=== PATIENT | female | born 1980 | race Caucasian/White ===

== ENCOUNTER 2017-09-27 19:42 | Inpatient (IN) | payer MEDICAID, OTHER ==
[~2017-09-27] VITALS: Ht 157.5 cm; Wt 60.9 kg
[~2017-09-27 19:42] MED LIST: DIPH25CA85 PO; DSS100 PO; HYDR-4031 PO; NICO21T TD; PANT40TA25 PO; TRAZ-144 PO
[2017-09-27] MEDS ORDERED: ALPR1TAB7 PO (19:48)
[2017-09-27] MEDS ORDERED: SODIUM CHLORIDE 0.9% 1,000 ML IV ONE (20:15)
[2017-09-27 20:27] LABS: BASOPHILS % (AUTO) 0.8 % (0.0-2.0); EOSINOPHILS % (AUTO) 0.7 % (1.0-6.0); HEMATOCRIT 38.5 % (36-46); HEMOGLOBIN 12.7 g/dL (12.0-16.0); LYMPHOCYTES # (AUTO) 1.7 K/uL (1.0-4.8); LYMPHOCYTES % (AUTO) 27.1 % (22.0-44.0); MEAN CORPUSCULAR HEMOGLOBIN 26.7 pg (26.0-34.0); MEAN CORPUSCULAR VOLUME 81 fL (80-100); MONOCYTES # (AUTO) 0.4 K/uL (0.1-1.0); MONOCYTES % (AUTO) 5.7 % (2.0-9.0); NEUTROPHILS # (AUTO) 4.1 K/uL (1.8-7.7); NEUTROPHILS % (AUTO) 65.7 % (40.0-70.0); PLATELET COUNT (AUTO) 249 K/uL (150-450); RED BLOOD CELL COUNT(AUTO) 4.76 MIL/uL (4.00-5.20); RED CELL DISTRIBUTION WIDTH 14.6 % (11.5-14.5)
[2017-09-27 20:39] LABS: ANION GAP 9 mmol/L (8-16); CALCIUM, TOTAL 8.6 mg/dL (8.8-10.5); CARBON DIOXIDE 28 mmol/L (22-29); CHLORIDE 103 mmol/L (98-107); CREATININE 0.74 mg/dL (0.60-1.30); GLOMERULAR FILTR. RATE CALC > 60 mL/min (>60); GLUCOSE,RANDOM 84 mg/dL (70-110); POTASSIUM 3.3 mmol/L (3.5-5.1); SODIUM SERUM 140 mmol/L (136-145); UREA NITROGEN, BLOOD 10 mg/dL (7-18)
[2017-09-27 20:44] LABS: ALANINE AMINOTRANSFERASE 18 U/L (12-78); ALBUMIN 3.8 g/dL (3.4-5.0); ALKALINE PHOSPHATASE 80 U/L (46-116); ASPARTATE AMINOTRANSFERASE 14 U/L (15-37); BILIRUBIN,TOTAL 0.2 mg/dL (0.1-1.0); TOTAL PROTEIN, SERUM 7.5 g/dL (6.4-8.2)
[2017-09-27 20:59] LABS: SALICYLATE 1.2 mg/dL (2.8-20.0)
[2017-09-27 21:06] LABS: APPEARANCE,URINE CLOUDY (CLEAR); BILIRUBIN,URINE NEGATIVE (NEGATIVE); GLUCOSE, URINE (UA) NEGATIVE (NEGATIVE); KETONES,URINE 40 mg/dL (NEGATIVE); LEUKOCYTE ESTERASE ,URINE NEGATIVE (NEGATIVE); NITRATE,URINE NEGATIVE (NEGATIVE); OCCULT BLOOD,URINE NEGATIVE (NEGATIVE); PROTEIN,URINE NEGATIVE (NEGATIVE); UROBILINOGEN,URINE 0.2 mg/dL (<=1.0)
[2017-09-27 21:11] LABS: HCG,QUAL RESULT NEGATIVE (NEGATIVE)
[2017-09-27 21:14] LABS: AMPHET/METH SCREEN,URINE NEGATIVE (NEGATIVE); BARBITURATE SCREEN, URINE NEGATIVE (NEGATIVE); BENZODIAZEPINES SCREEN,URINE POSITIVE (NEGATIVE); CANNABINOID SCREEN,URINE NEGATIVE (NEGATIVE); COCAINE SCREEN,URINE NEGATIVE (NEGATIVE); METHADONE SCREEN, URINE NEGATIVE (NEGATIVE); OPIATE SCREEN,URINE NEGATIVE (NEGATIVE); PHENCYCLIDINE SCREEN,URINE NEGATIVE (NEGATIVE)
[2017-09-27] MEDS ORDERED: DONNATAL/LIDOCAINE/MAALOX 55 ML BOTTLE PO ONE (21:15)
[2017-09-27] MEDS ORDERED: POTASSIUM CHLORIDE 20 MEQ ER TABLET PO ONE (21:15)
[2017-09-27 21:32] LABS: ACETAMINOPHEN < 10 mcg/mL (10-30)
[2017-09-27] MEDS ORDERED: LORazepam 2 MG TABLET PO PRN (22:00)
[2017-09-27] MEDS ORDERED: ZOLPIDEM TARTRATE 10 MG TABLET PO PRN (22:00)
[2017-09-27] MEDS ORDERED: HALOPERIDOL 5 MG TABLET PO PRN (22:00)
[2017-09-28] VITALS (13 sets, daily range): BP systolic 105–130; BP diastolic 64–95
[2017-09-28] MEDS ORDERED: INFLUENZA VIRUS VACCINE QVS 2017-18 (3YR+)/PF 60 MCG/0.5 ML SYRINGE IM ONE (04:15)
[2017-09-28] MEDS ORDERED: BACITRACIN 28.4 GM OINTMENT TP PRN (08:15)
[2017-09-28] MEDS ORDERED: BENZOCAINE/MENTHOL LOZENGE MM PRN (08:15)
[2017-09-28] MEDS ORDERED: MAGNESIUM HYDROXIDE SUSPENSION 30 ML UDCUP PO PRN (08:15)
[2017-09-28] MEDS ORDERED: CloNIDine HCL 0.1 MG TABLET PO PRN (08:15)
[2017-09-28] MEDS ORDERED: MAG HYDROX/AL HYDROX/SIMETH ES 30 ML SUSPENSION UDCUP PO PRN (08:15)
[2017-09-28] MEDS ORDERED: LOPERAMIDE HCL 2 MG CAPSULE PO PRN (08:15)
[2017-09-28] MEDS ORDERED: ALBUTEROL SULFATE HFA 90 MCG/PUFF 8 GM INHALER IH PRN (08:15)
[2017-09-28] MEDS ORDERED: ONDANSETRON HCL 4 MG TABLET PO PRN (08:15)
[2017-09-28] MEDS ORDERED: PETROLATUM,WHITE 71 GM JELLY TP PRN (08:15)
[2017-09-28] MEDS ORDERED: ACETAMINOPHEN 325 MG TABLET PO PRN (08:15)
[2017-09-28 08:30] LABS: HEMOGLOBIN A1C 5.5 % (4.5-6.2)
[2017-09-28 09:10] LABS: FREE T4 (FREE THYROXINE) 0.93 ng/dL (0.76-1.46); THYROID STIMULATING HORMONE 2.22 uIU/mL (0.36-3.74)
[2017-09-28] MEDS: OMEPRAZOLE 20 MG CAPSULE PO SCH ×2 (09:43→16:11)
[2017-09-28] MEDS: NICOTINE 14 MG/24 HOUR PATCH TD SCH (09:43)
[2017-09-28] MEDS: IBUPROFEN 600 MG TABLET PO PRN (13:01)
[2017-09-28] MEDS ORDERED: HydrOXYzine PAMOATE 25 MG CAPSULE PO PRN (14:15)
[2017-09-28] MEDS: ALPRAZolam 1 MG TABLET PO SCH (16:12)
[2017-09-28] MEDS ORDERED: TraZODone HCL 50 MG TABLET PO SCH (21:00)
[2017-09-29 03:00] VITALS: BP 100/61
[2017-09-29] MEDS: NICOTINE 14 MG/24 HOUR PATCH TD SCH (08:34)
[2017-09-29] MEDS: ALPRAZolam 1 MG TABLET PO SCH (08:34)
[2017-09-29] MEDS: OMEPRAZOLE 20 MG CAPSULE PO SCH (08:34)
[2017-09-29 08:37] VITALS: BP 116/68
[2017-09-29 08:38] VITALS: BP 116/69
[2017-09-29] MEDS: IBUPROFEN 600 MG TABLET PO PRN (08:38)
[2017-09-29] MEDS ORDERED: OMEP10SU2 PO (13:28)
[2017-09-29] MEDS ORDERED: OMEP20 PO (13:28)
[2017-09-29] MEDS ORDERED: TRAZ-144 PO (13:28)
== END 2017-09-29 15:48 | disposition home or self-care (01) | DRG 754 ==
LOC: EMS 19:43 → EEVIPCON 19:43 → B2S 22:05
PROVIDERS: ADMIT Psychiatry & Neurology Psychiatry
PROC: 3E0234Z Introduction of Serum, Toxoid and Vaccine into Muscle, Percutaneous Approach (ICD-10-PCS; principal; 2017-09-28)
DX: F32.9 Major depressive disorder, single episode, unspecified (principal); E55.9 Vitamin D deficiency, unspecified; E87.6 Hypokalemia; F17.200 Nicotine dependence, unspecified, uncomplicated; F41.9 Anxiety disorder, unspecified; G47.00 Insomnia, unspecified; J45.909 Unspecified asthma, uncomplicated; K21.9 Gastro-esophageal reflux disease without esophagitis; K64.9 Unspecified hemorrhoids; T42.4X2A Poisoning by benzodiazepines, intentional self-harm, initial encounter; Z98.84 Bariatric surgery status; Y92.89 Other specified places as the place of occurrence of the external cause; Z91.040 Latex allergy status; Z91.013 Allergy to seafood; Z23 Encounter for immunization
CPT/HCPCS: 83036; 84132; 84439; 84443; 90471; 93005; 96360; 96361; 99285; G0480; G0481; J7030